=== PATIENT | male | born 1965 | race Caucasian/White ===

== ENCOUNTER 2022-04-09 10:58 | Inpatient (IN) | payer OTHER ==
[~2022-04-09] VITALS: Ht 172.7 cm; Wt 68.0 kg
[2022-04-09] MEDS ORDERED: LORAZEPAM 2 MG/1 ML VIAL IV ONE ×2 (11:15→17:30)
[2022-04-09] MEDS ORDERED: LORAZEPAM 2 MG/1 ML VIAL ONE ×2 (11:20→17:27)
[2022-04-09 11:24] LABS: HEMATOCRIT 35.6 % (36.7-47.1); MEAN CORPUSCULAR HEMOGLOBIN 32.4 uug (23.8-33.4); MEAN CORPUSCULAR VOLUME 97.9 fL (73.0-96.2); PLATELET COUNT (AUTO) 115 K/uL (152-348)
[2022-04-09 11:26] LABS: *BILIRUBIN,URIN NEGATIVE (NEGATIVE); *BLOOD, URINE NEGATIVE (NEGATIVE); *CLARITY,URINE CLEAR (CLEAR); *COLOR,URINE YELLOW (YELLOW); *KETONES,URINE NEGATIVE (NEGATIVE); *UROBILINOGEN,URINE 0.2 E.U./dl (NORMAL); LEUKOCYTE ESTERASE ,URINE NEGATIVE (NEGATIVE); NITRITE, URINE NEGATIVE (NEGATIVE); PH,URINE 5.5 (5.0-8.0); UGLUCOSE NEGATIVE (NEGATIVE)
--- NOTE | 2022-04-09 11:26 | NUR ---
Patient taken to CT scan.
[2022-04-09 11:37] LABS: NEUTROPHILS % (MANUAL) 0 % (42-75)
[2022-04-09 11:39] LABS: CARBON DIOXIDE 30 mmol/L (21-32); CHLORIDE 105 mmol/L (98-107); CREATININE 0.7 mg/dL (0.6-1.3); GLUCOSE 86 mg/dL (74-106); POTASSIUM 3.6 mmol/L (3.5-5.1); UREA NITROGEN, BLOOD 14 mg/dL (7-18)
--- NOTE | 2022-04-09 11:40 | NUR ---
Patient back from CT scan.
[2022-04-09 11:41] LABS: ETHANOL < 3 MG/DL (0-0)
[2022-04-09 11:43] LABS: *AMPHETAMINE, URINE NEGATIVE (NEGATIVE); *CANNABINOID, URINE NEGATIVE (NEGATIVE); *COCCAINE, URINE NEGATIVE (NEGATIVE); *PHENCYCLIDINE SCREEN,URINE NEGATIVE (NEGATIVE)
[2022-04-09 11:47] LABS: ALANINE AMINOTRANSFERASE 34 U/L (16-63); ALKALINE PHOSPHATASE 171 U/L (50-136); ASPARTATE AMINOTRANSFERASE 37 U/L (15-37); BILIRUBIN,DIRECT 0.2 mg/dL (0.0-0.2); BILIRUBIN,TOTAL 0.4 mg/dL (0.2-1.0); TOTAL PROTEIN, SERUM 7.9 g/dL (6.4-8.2)
[2022-04-09 11:48] LABS: ACETAMINOPHEN < 2.0 ug/mL (10-30)
[2022-04-09] MEDS ORDERED: LORA-258 PO (12:16)
[2022-04-09] MEDS ORDERED: ACET325C7 PO (12:16)
[2022-04-09] MEDS ORDERED: FOLI1TAB94 PO (12:16)
[2022-04-09] MEDS ORDERED: LACT10SO3 PO (12:16)
[2022-04-09] MEDS ORDERED: PHEN-563 PO (12:16)
[2022-04-09] MEDS ORDERED: ACET-2605 PO (12:16)
[2022-04-09] MEDS ORDERED: MIRT-93 PO (12:16)
[2022-04-09] MEDS ORDERED: FOLI0.8T2 PO (12:16)
[2022-04-09] MEDS ORDERED: THIA100T13 PO (12:16)
[2022-04-09] MEDS ORDERED: LEVE500T20 PO (12:16)
[2022-04-09] MEDS ORDERED: RIFA550T PO (12:16)
[2022-04-09] MEDS ORDERED: ATOR40TA PO (12:16)
--- NOTE | 2022-04-09 16:00 | NUR ---
Called for a bed. Patient to go to room 319. ISHMAEL Edouard will be assigned to the patient.
--- NOTE | 2022-04-09 16:56 | NUR ---
Awaiting room 319 to be cleaned per special investigation unit investigator on third floor.
--- NOTE | 2022-04-09 19:20 | NUR ---
[place] cleaning performed. Diaper fully saturated with yellow urine.
--- NOTE | 2022-04-09 19:50 | NUR ---
Called 3rd fl to given report, was told that I will receive a call back.
[2022-04-09] MEDS ORDERED: ONDANSETRON 4 MG/2 ML VIAL IV PRN (21:00)
--- NOTE | 2022-04-09 21:10 | NUR ---
[facility] to page Dr. Hazel
[2022-04-09] MEDS ORDERED: LIDOCAINE 2%-EPI 1:100,000 20 ML VIAL ONE (21:26)
--- NOTE | 2022-04-09 21:37 | NUR ---
Spoke to Dr. Hazel.
[2022-04-09] MEDS ORDERED: LIDOCAINE 2%-EPI 1:100,000 20 ML VIAL IJ ONE (21:45)
--- NOTE | 2022-04-09 22:02 | NUR ---
PT taken down for CT scan.
--- NOTE | 2022-04-09 22:19 | NUR ---
Patient is back from CT.
--- NOTE | 2022-04-09 23:10 | NUR ---
[place] cleaning performed. Diaper saturated with urine.
--- NOTE | 2022-04-09 23:18 | NUR ---
Report given to ISHMAEL Guajardo.
--- NOTE | 2022-04-09 23:30 | NUR ---
Notifed Rizwana (Patient's sister) of hospital admission.
[2022-04-10 00:35] VITALS: BP 112/80
--- NOTE | 2022-04-10 00:40 | NUR ---
Pt. admitted to TELE rm 319, under care of Dr. Hazel Belongs List completed ISHMAEL Guajardo aware of pt's arrival to unit.
[2022-04-10] MEDS ORDERED: ACETAMINOPHEN 325 MG TABLET PO PRN (00:45)
--- NOTE | 2022-04-10 00:50 | NUR ---
Received Pt from ER Nurse Gita at approximately 0030 via [employer]. Pt is A&Ox1 and cooperative. SR on tele. Pt on Rm Air. Pt has very slight partial thickness loss wound around sacrum area and wound on forehead from fall in ED. Sutures are intact. Pt had CT scan of head x2. CT's showed subdural hemorrhaging difficult to entirely exclude. Endorsed by Gita. Dr. Mackey is aware of CT head result. Pt in bilateral soft restraints. Safety measures in place. Will continue to monitor.
[2022-04-10] MEDS: MIRTAZAPINE 15 MG TABLET PO SCH ×2 (01:48→20:29)
--- NOTE | 2022-04-10 01:49 | NUR ---
Did not administer Xylocaine and Remeron as it was due at 2100. Received Pt on 04/10 at approximately 0030. Safety measures in place. Will continue to monitor.
[2022-04-10 04:00] VITALS: BP 115/80
[2022-04-10] MEDS: PANTOPRAZOLE SODIUM 40 MG TABLET.DR PO SCH (06:10)
--- NOTE | 2022-04-10 06:27 | NUR ---
End of Shift Note: Pt is A&Ox3 and cooperative. SR on tele. Pt on Rm Air. Pt has very slight partial thickness loss wound around sacrum area and wound on forehead from fall in ED. Sutures are intact. Put bandage & kerlix around head wound. Pt in bilateral soft restraints. Safety measures in place. Will continue to monitor.
[2022-04-10 06:49] LABS: HEMATOCRIT 35.5 % (36.7-47.1); MEAN CORPUSCULAR HEMOGLOBIN 32.7 uug (23.8-33.4); MEAN CORPUSCULAR VOLUME 96.2 fL (73.0-96.2); PLATELET COUNT (AUTO) 109 K/uL (152-348)
--- NOTE | 2022-04-10 07:25 | NUR ---
Told Day shift of CT's showed possible subdural hemorrhaging being difficult to entirely exclude.
[2022-04-10 07:31] LABS: THYROID STIMULATING HORMONE 1.481 mIU/mL (0.358-3.740)
[2022-04-10 07:35] LABS: ALANINE AMINOTRANSFERASE 34 U/L (16-63); ALKALINE PHOSPHATASE 122 U/L (50-136); ASPARTATE AMINOTRANSFERASE 49 U/L (15-37); BILIRUBIN,TOTAL 0.5 mg/dL (0.2-1.0); CARBON DIOXIDE 27 mmol/L (21-32); CHLORIDE 103 mmol/L (98-107); CHOLESTEROL 149 mg/dL (<200); CREATININE 0.6 mg/dL (0.6-1.3); GLUCOSE 85 mg/dL (74-106); HDL CHOLESTEROL 65 mg/dL (40-60); MAGNESIUM 1.4 mg/dL (1.8-2.4); PHOSPHOROUS 4.1 mg/dL (2.5-4.9); POTASSIUM 3.8 mmol/L (3.5-5.1); TOTAL PROTEIN, SERUM 8.3 g/dL (6.4-8.2); TRIGLYCERIDES 90 MG/DL (30-150); UREA NITROGEN, BLOOD 7 mg/dL (7-18)
[2022-04-10] MEDS ORDERED: PHENOBARBITAL PO SCH (09:00)
--- NOTE | 2022-04-10 09:00 | NUR ---
Pt alert to Name, reorient pt to time and place. Pt has garbled speech as baseline per report. Pt on tutu wrist restraint - released restraint circulation and skin intact cap refill less than 2 secs. Aspiration and fall precaution implemented. No coughing noted when feeding pt by CREAT[employer] RE[employer]. bed alarm on. Pt attempts to pull his tubings out even when tubes were hidden under blanket. Tele snr @96. Pt is in no acute distress.
[2022-04-10] MEDS: FOLIC ACID/VITAMIN B COMP W-C TABLET PO SCH (09:12)
[2022-04-10] MEDS: levETIRAcetam 500 MG TABLET PO SCH ×2 (09:12→17:45)
[2022-04-10] MEDS: LACTULOSE 20 G/30 ML LIQUID UDC PO SCH ×2 (09:12→17:41)
[2022-04-10] MEDS: RIFAXIMIN 550 MG TABLET PO SCH ×2 (09:14→17:41)
[2022-04-10] MEDS: PHENOBARBITAL 32.4 MG TABLET PO SCH ×3 (09:17→17:41)
[2022-04-10] MEDS: MAGNESIUM SULFATE/D5W 100 ML IV SCH ×4 (09:41→13:39)
[2022-04-10 11:34] VITALS: BP 101/69
[2022-04-10] MEDS: LORAZEPAM 2 MG/1 ML VIAL IV PRN ×2 (13:44→22:21)
--- NOTE | 2022-04-10 13:50 | NUR ---
Pt was spitting his food and very combative. Decreased stimuli and environmental distraction not effective. Pt spitting on waste duster while getting fed. phenobarb po held secondary to patient non compliant on have anything po. Ativan given for agitation.
--- NOTE | 2022-04-10 14:30 | NUR ---
PT sleeping resp 18. Ativan effective. Pt quiet released wrist restraint. Will continue to monitor patient.
[2022-04-10 15:44] VITALS: BP 94/66
--- NOTE | 2022-04-10 19:00 | NUR ---
Received patient in bed, awake alert 1 to 2, quiet calm at this time, soft wrist restraint in place to prevent on pulling out iv lines, to prevent from climbing out of bed, kept patient clean and dry, will offer fluids, drank 2 packet of cranberry juice and water, cont to monitor.
[2022-04-10 20:00] VITALS: BP 101/59
--- NOTE | 2022-04-10 22:28 | NUR ---
Patient noted with agitation, tries to climb out of bed, patient unredirectable, given food and juice but not effective, reorientation noted effective, given Ativan 0.5,g iv as ordered, cont to monitor, patient soft wrist restraints, check for circulation and placement, bed alarm in place to monitor.
[2022-04-11] VITALS: BP 105/62
[2022-04-11] MEDS ORDERED: OLANZAPINE 10 MG VIAL IM ONE (03:00)
--- NOTE | 2022-04-11 03:15 | NUR ---
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 Patient kept clean dry and comfortable, refused food and water. cont to monitor.
[2022-04-11 05:35] VITALS: BP 109/75
[2022-04-11] MEDS: PANTOPRAZOLE SODIUM 40 MG TABLET.DR PO SCH (06:13)
[2022-04-11 06:38] LABS: HEMATOCRIT 35.9 % (36.7-47.1); MEAN CORPUSCULAR HEMOGLOBIN 32.9 uug (23.8-33.4); MEAN CORPUSCULAR VOLUME 96.5 fL (73.0-96.2); PLATELET COUNT (AUTO) 109 K/uL (152-348)
[2022-04-11 06:59] LABS: BILIRUBIN,DIRECT 0.2 mg/dL (0.0-0.2); BILIRUBIN,TOTAL 0.5 mg/dL (0.2-1.0); CREATININE 0.7 mg/dL (0.6-1.3); MAGNESIUM 1.7 mg/dL (1.8-2.4); PHOSPHOROUS 4.6 mg/dL (2.5-4.9); POTASSIUM 3.6 mmol/L (3.5-5.1); TOTAL PROTEIN, SERUM 8.5 g/dL (6.4-8.2)
[2022-04-11 09:02] LABS: NEUTROPHILS % (MANUAL) 0 % (42-75)
[2022-04-11] MEDS: PHENOBARBITAL 32.4 MG TABLET PO SCH ×3 (09:28→17:00)
[2022-04-11] MEDS: levETIRAcetam 500 MG TABLET PO SCH ×2 (09:28→18:02)
[2022-04-11] MEDS: LACTULOSE 20 G/30 ML LIQUID UDC PO SCH ×2 (09:28→18:02)
[2022-04-11] MEDS: RIFAXIMIN 550 MG TABLET PO SCH ×2 (09:28→18:03)
[2022-04-11] MEDS: FOLIC ACID/VITAMIN B COMP W-C TABLET PO SCH (09:28)
[2022-04-11] MEDS: QUETIAPINE FUMARATE 25 MG TABLET PO SCH ×2 (09:35→14:32)
[2022-04-11] MEDS: LORAZEPAM 2 MG/1 ML VIAL IV PRN (11:37)
[2022-04-11 12:00] VITALS: BP 101/63
[2022-04-11] MEDS ORDERED: MAGNESIUM OXIDE 400 MG TABLET PO ONE (12:00)
--- NOTE | 2022-04-11 12:52 | NUR ---
WOUND CARE CONSULT: PT PRESENTS WITH SACRAL SCARRING AND SUTURED LACERATION TO FOREHEAD, PRESENT ON ADMISSION. PT SEEN WITH [facility] DISCUSSED SKIN PROTECTION AND WOUND CARE RECOMMENDATIONS WITH NURSING STAFF. MD IN AGREEMENT WITH PLAN OF CARE.
[2022-04-11] MEDS ORDERED: NEOMY/BACITRAC/POLYMI OINT 28.35 GM TUBE TOP SCH (13:00)
[2022-04-11] MEDS ORDERED: QUET25TA36 PO (15:28)
[2022-04-11 16:20] VITALS: BP 96/58
--- NOTE | 2022-04-11 18:23 | NUR ---
PT PENDING DISCHARGE AMBULANCE SHOWED UP 2 HRS EARLY . pT WAS DROWSY HAD SEROQUEL AND PHENOBARB PRIOR TO THEIR ARRIVAL SBP 80'S nOW PT MORE EASILY AROUSED. FED PM MEDS GIVEN PHENOBARB NOT GIVEN PT ON KEPPRA WILL F/U WITH PT'S DISCHARGE.
== END 2022-04-11 21:26 | DRG 52 ==
LOC: ER 10:58 → TELE3 21:00
PROVIDERS: ADMIT Internal Medicine; ATTEND Nurse Practitioner Acute Care
DX: G92.8 Other toxic encephalopathy (principal); D68.69 Other thrombophilia; F01.50 Vascular dementia, unspecified severity, without behavioral disturbance, psychotic disturbance, mood disturbance, and anxiety; D64.9 Anemia, unspecified; G40.909 Epilepsy, unspecified, not intractable, without status epilepticus; S01.01XA Laceration without foreign body of scalp, initial encounter; R29.6 Repeated falls; Z86.73 Personal history of transient ischemic attack (TIA), and cerebral infarction without residual deficits; K70.30 Alcoholic cirrhosis of liver without ascites; Z87.828 Personal history of other (healed) physical injury and trauma; Z20.822 Contact with and (suspected) exposure to COVID-19; Z74.09 Other reduced mobility; I10 Essential (primary) hypertension; T43.595A Adverse effect of other antipsychotics and neuroleptics, initial encounter; G93.89 Other specified disorders of brain; W19.XXXA Unspecified fall, initial encounter; Y93.9 Activity, unspecified; Y92.230 Patient room in hospital as the place of occurrence of the external cause
CPT/HCPCS: 36415; 70030-TC; 70450; 71045; 83735; 84100; 84443; 84484; 85025; 85730; 93005; G0378; G0480; J2060; J2358; J3475